=== PATIENT | male | born 1995 | race Two or more races ===

== ENCOUNTER 2023-07-23 10:09 | Outpatient (AMB) | payer OTHER, SELFPAY ==
--- NOTE | 2023-07-23 10:10 | A.OFFPC_ITS ---
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- NEEDS PHQ9 +THRIVE Email Operations Manager Required: No Accompanied by: Self / Same As Patient Allergies amoxicillin Adverse Reaction (Mild, Verified 07/23/23 10:23) Unknown Medication List - Last Reconciled 07/23/23 by JOSUÉ Cruz Tobacco use date assessed: 07/23/23 Dental Screening Dental Screen Date: 07/23/23 Did you have a dental visit in the last 12 months?: No Did you have a dental problem in the last 6 months where you did not have access to dental care?: No Was dental information given to patient?: No HPI HPI Comments History of Present Illness Details 27-year-old male new patient presents [facility]. Past medical history significant for Spondylothisthesis of lumbar back, patient reports was noted on MRI 2021. Patient states few months ago he re-injured his back, does not recall any particular trauma but states continues to have diffuse lumbar back pain, patient states pain is a dull aching pain. Denies any radiculopathy symptoms and bowel or bladder incontinence. Patient has done physical therapy in the past with improvement, requesting referral to PT. Patient currently taking any medications [id number] for back pain, states he usually treats pain with heat,TENS therapy and stretching. Pain is exacerbated by sitting, patient carries seat cushion with him just in case he needs to sit. Patient has an appointment with [facility] physical therapy to [facility], requesting referral for this patient given printed referral. Denies CP,palpitations,sob and syncope. [place]; unknown pcp eye exam: 2 weeks ago Declined Labs [facility] Medical History (Updated 07/23/23 @ 10:47 by JOSUÉ Cruz) Benign focal epilepsy of childhood Acute pharyngitis Otitis media, left Family History (Updated 07/23/23 @ 10:31 by JOSUÉ Cruz) Mother No problems noted. Father No problems noted. Sister No problems noted. Social History (Updated 07/23/23 @ 10:31 by JOSUÉ Cruz) Housing: Apartment Alcohol intake: never Patient Tobacco Use Status: Never used Tobacco e-Cigarette/Vaping Use: Never Used Substance Use Type: Marijuana Cognitive needs: No Hearing needs: No Vision needs: No Questionnaire PHQ-9 Over the last 2 weeks, how often have you been bothered by any of the following problems? 1. Little interest or pleasure in doing things: not at all 2. Feeling down, depressed, or hopeless: not at all 3. Trouble falling or staying asleep, or sleeping too much: not at all 4. Feeling tired or having little energy: not at all 5. Poor appetite or overeating: not at all 6. Feeling bad about yourself - or that you are a failure or have let yourself or your family down: not at all 7. Trouble concentrating on things, such as reading the newspaper or watching television: not at all 8. Moving or speaking so slowly that other people could have noticed. Or the opposite - being so fidgety or restless that you have been moving around a lot more than usual: not at all 9. Thoughts that you would be better off or of hurting yourself in some way: not at all Total score: 0 Depression Screening Interpretation: Negative Depression Screening Done: Yes 53073 - PHQ-9 Billing: Yes Source: Developed by Drs. Dale Gagnon, Danielle Alex, Matthias Murcia and colleagues, with an educational marlena from [employer]. Thrive Questionnaire Date Thrive assessed: 07/23/23 I am a: Patient What is your living situation today?: I have a steady place to live Within the past 12 months, did the food you bought not last and you didn't have the money to get more?: Never true Within the past 12 months, did you worry whether your food would run out before you got money to buy more?: Never true Do you have trouble paying for medicines?: No Do you have trouble getting transportation to medical appointments?: No Do you have trouble paying your heating and electricity bill?: No Do you have trouble taking care of your child, family member or friend?: No Do you have trouble with day-to-day activities such as bathing, preparing meals, shopping, managing finances, etc.?: No Are you currently unemployed and looking for a job?: No Are you interested in more education?: No Please select the resources that you would like help with: None Currently or been in a relationship where the following occur: no concerns reported AUDIT C Alcohol Use Questionnaire (AUDIT-C) 1. How often do you have a drink containing alcohol?: Never 3. How often do you have six or more drinks on one occasion?: Never Total Score: 0 SEBASTIAN-7 AMB Questionnaire SEBASTIAN-7 Date SEBASTIAN - 7 assessed: 07/23/23 Feeling nervous, anxious, or on edge: 0 = Not at all Not being able to stop or control worryin = Not at all Worrying too much about different things: 0 = Not at all Trouble relaxin = Not at all Being so restless that it is hard to sit still: 0 = Not at all Becoming easily annoyed or irritable: 0 = Not at all Feeling afraid as if something awful might happen: 0 = Not at all Total SEBASTIAN-7 score (0-4 normal; 5-9 mild; 10-14 moderate; 15-21 severe): 0 Source: Developed by Drs. Dale Gagnon, Danielle Alex, Matthias Murcia and colleagues, with an educational marlena from [employer]. SEBASTIAN-7 Assessment Billing SEBASTIAN-7 Assessment Tool: SEBASTIAN-7 Assessment 57774 Review of Systems Const Denies chills, Denies fatigue, Denies fever(s) and Denies poor appetite Eyes Denies no additional complaints ENT Reports Normal hearing present Card Denies chest pain, Denies syncope, Denies rapid heart rate and Denies dyspnea Resp Denies cough and Denies dyspnea GI Denies change in stool character, Denies constipation, Denies diarrhea, Denies nausea and Denies vomiting Denies dysuria, Denies urinary frequency and Denies urinary urgency Musc Reports back pain (lumbar back pain ) Neuro Reports Normal hearing present, Denies confusion and Denies syncope Psych Denies confusion Endo Denies fatigue Physical exam (Primary Care) Vital Signs: Last Vital Signs Pulse 113 H 07/23/23 10:11 BP 122/80 07/23/23 10:11 Pulse Ox 98 07/23/23 10:11 Oxygen Delivery Method Room Air 07/23/23 10:11 BMI result Body Mass Index 30.7 Tobacco/Smoking Status: Tobacco use Status Tobacco use date assessed 07/23/23 07/23/23 10:19 Patient Tobacco Use Status Never used Tobacco 07/23/23 10:31 e-Cigarette/Vaping Use Never Used 07/23/23 10:31 PHQ-9: PHQ-9 Score PHQ-9: Total score 0 07/23/23 10:33 Depression Screening Interpretation: Negative Thrive Assessment: Date of Thrive Assessment Date Thrive assessed 07/23/23 07/23/23 10:19 Currently or been in a relationship where the following occur: no concerns reported Const General: No confusion Orientation/consciousness: No confusion HENMT Head: Yes normocephalic and Yes atraumatic Ears: external ears normal and TM's normal bilaterally General nose exam: Normal external nose present and Normal nasal mucous membranes and turbinates present Face and sinus: Yes normal facial exam and Yes sinuses nontender Mouth: moist mucous membranes Throat: Yes tonsils normal Eyes Conjunctivae: conjunctivae normal Sclerae: sclerae normal Pupils: Equal, round and reactive pupils present and Pupils normal by confrontation EOM: EOMs intact bilaterally Direct Ophthalmoscopy: normal light reflex Neck Neck: Yes no lymphadenopathy and Yes supple Thyroid: Thyroid normal Chest Chest palpation & inspection: normal inspection of the chest Resp Effort & Inspection: normal respiratory effort Auscultation: clear to auscultation bilaterally, no crackles, no rhonchi and no wheezes Cardio Rate: regular rate Rhythm: regular rhythm Peripheral pulses: radial pulses present and dorsalis pedis present GI Inspection: Yes normal to inspection Palpation (GI): Soft to palpation, nontender and No hepatosplenomegaly present Auscultation: normoactive bowel sounds Back/Spine/Pelvis Cervical Spine: normal cervical lordosis Thoracic/Lumbar Spine: thoracic and lumbar spine normal to inspection, No thoracic spinal tenderness, lumbar spinal tenderness and No straight leg raise positive (unable to complete, patient unable to tolerate lying flat ) Pelvis: no pain with anterior-posterior compression Skin General skin exam: no rashes or lesions noted Neuro General: No confusion Cranial nerves: Yes Equal, round and reactive pupils present and Yes Normal hearing present Cognition (Neuro): normal cognition Gait exam (Neuro): Normal gait present Motor exam (neuro): 5/5 motor strength present throughout Deep tendon reflexes (DTR's): Right brachioradialis reflex intensity grade: 2+, Left brachioradialis reflex intensity grade: 2+, Right patellar reflex intensity grade: 2+ and Left patellar reflex intensity grade: 2+ Extrem General: No edema Assessment and Plan Assessment & Plan (1) Spondylolisthesis of lumbar region: Comment: L5 grade 2 MRI November 2021 Code(s): M43.16 - Spondylolisthesis, lumbar region Plan: Referral entered to PT. Can us OTC Tylenol or ibuprofen as needed for pain and continue to use heat, TENS therapy . Signs and symptoms reviewed with patient when to follow up or seek emergency medical attention. (2) Physical exam, annual: Code(s): Z00.00 - Encounter for general adult medical examination without abnormal findings Plan: Follow up in 1 year or sooner if needed (3) Psoriasis: Code(s): L40.9 - Psoriasis, unspecified Plan: Patient requesting refill on his triamcinolone cream, RX sent to patients pharmacy. Orders: Orders PT Evaluation and Treatment Today M43.16 - Spondylolisthesis, lumbar region Medications: New triamcinolone acetonide 0.1% 1 appl topical BID 30 grams 0RF L40.9 - Psoriasis, unspecified Coding Level of Care Code New Pt Prev Care 18-39yr([id number] Diagnoses Spondylolisthesis of lumbar region M43.16 Physical exam, annual Z00.00 Psoriasis L40.9 Additional Codes SEBASTIAN-7 Assessment Billing - SEBASTIAN-7 Assessment Tool: SEBASTIAN-7 Assessment [id number] ([id number])
[2023-07-23 10:11] VITALS: BP 122/80; PULSE 113; O2SAT 98; BMI 30.7
== END 2023-07-23 10:44 | disposition home or self-care (01) ==
PROVIDERS: PCP Internal Medicine; Visit Provider Nurse Practitioner Family
DX: M43.16 Spondylolisthesis, lumbar region (principal); Z00.00 Encounter for general adult medical examination without abnormal findings; L40.9 Psoriasis, unspecified
CPT/HCPCS: 99385

== ENCOUNTER → 2024-07-25 09:53 | Outpatient (BNVA) | payer OTHER, SELFPAY | PROVIDERS: PCP Internal Medicine; Visit Provider Internal Medicine ==

== ENCOUNTER 2025-05-15 09:22 | Outpatient (AMB) | payer OTHER, SELFPAY ==
[2025-05-15 09:24] VITALS: BP 120/78; PULSE 64; O2SAT 98; BMI 28.1
--- NOTE | 2025-05-15 09:24 | MHC.PC.OV ---
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 Accompanied by: Self / Same As Patient Allergies amoxicillin Adverse Reaction (Mild, Verified 05/15/25 09:48) Unknown Medication List - Last Reconciled 05/15/25 by Olu Rolon MD naproxen 500 mg PO BID PRN triamcinolone acetonide 0.1% 1 appl topical BID Tobacco use date assessed: 05/15/25 Dental Screening Dental Screen Date: 05/15/25 Did you have a dental visit in the last 12 months?: Yes Did you have a dental problem in the last 6 months where you did not have access to dental care?: No Was dental information given to patient?: Patient has dentist HPI Annual Exam Per Patient HPI Details Patient comes in today his annual physical examination States that he is still experiencing recurrent joint pains and occasional swelling, especially in his knees and wrists He has a history of osteoarthritis especially in his knees, with x-rays done in the past confirming his condition Also reports (+) low back pain lately States that he used to play football when he was younger and this was likely a partial reason for his current knee issues States that he takes OTC Naproxen as needed with partial relief of his knee pain and low back pain He also has a history of psoriasis and would like to get a refill on his Rx for Triamcinolone cream States that he feels okay otherwise He denies any headaches or dizziness Denies any chest pains, no increased shortness of breath No nausea/vomiting, no abdominal pain No change in bowel habits noted He denies any acute urinary symptoms [facility] Medical History (Updated 08/28/25 @ 03:36 by Olu Rolon MD) Overweight (BMI 25.0-29.9) Psoriasis Osteoarthritis of knees, bilateral Obesity, class 1 Benign focal epilepsy of childhood Surgical History History of tonsillectomy Family History Mother No problems noted. Father No problems noted. Sister No problems noted. Social History Housing: Apartment Alcohol intake: never Patient Tobacco Use Status: Never used Tobacco e-Cigarette/Vaping Use: Never Used Second Hand Smoke Exposure: No Substance Use Type: Marijuana service: No Current occupational status: employed Current occupation: Teacher Cognitive needs: No Hearing needs: No Vision needs: Yes (Glasses) Questionnaire PHQ-9 Over the last 2 weeks, how often have you been bothered by any of the following problems? 1. Little interest or pleasure in doing things: not at all 2. Feeling down, depressed, or hopeless: not at all 3. Trouble falling or staying asleep, or sleeping too much: not at all 4. Feeling tired or having little energy: more than half the days 5. Poor appetite or overeating: not at all 6. Feeling bad about yourself - or that you are a failure or have let yourself or your family down: not at all 7. Trouble concentrating on things, such as reading the newspaper or watching television: not at all 8. Moving or speaking so slowly that other people could have noticed. Or the opposite - being so fidgety or restless that you have been moving around a lot more than usual: more than half the days 9. Thoughts that you would be better off or of hurting yourself in some way: not at all Total score: 4 Depression Screening Interpretation: Positive Depression Screening Follow-up: Follow-up Visit Requested Depression Screening Done: Yes 99681 - PHQ-9 Billing: Yes Source: Developed by Drs. Dale Gagnon, Danielle Alex, Matthias Murcia and colleagues, with an educational marlena from [employer]. Thrive Questionnaire Date Thrive assessed: 05/15/25 I am a: Patient What is your living situation today?: I choose not to answer this question Within the past 12 months, did the food you bought not last and you didn't have the money to get more?: I choose not to answer this question Within the past 12 months, did you worry whether your food would run out before you got money to buy more?: I choose not to answer this question Do you have trouble paying for medicines?: I choose not to answer this question Do you have trouble getting transportation to medical appointments?: I choose not to answer this question Do you have trouble paying your heating and electricity bill?: I choose not to answer this question Do you have trouble taking care of your child, family member or friend?: I choose not to answer this question Do you have trouble with day-to-day activities such as bathing, preparing meals, shopping, managing finances, etc.?: Yes Are you currently unemployed and looking for a job?: I choose not to answer this question Are you interested in more education?: I choose not to answer this question Please select the resources that you would like help with: None Currently or been in a relationship where the following occur: I choose not to answer THRIVE Score: 0 AUDIT C Alcohol Use Questionnaire (AUDIT-C) 1. How often do you have a drink containing alcohol?: Never 3. How often do you have six or more drinks on one occasion?: Never Total Score: 0 Score Reviewed/Action Taken: Yes SEBASTIAN-7 AMB Questionnaire SEBASTIAN-7 Date SEBASTIAN - 7 assessed: 05/15/25 Feeling nervous, anxious, or on edge: 0 = Not at all Not being able to stop or control worryin = Not at all Worrying too much about different things: 0 = Not at all Trouble relaxin = More than half the days Being so restless that it is hard to sit still: 0 = Not at all Becoming easily annoyed or irritable: 0 = Not at all Feeling afraid as if something awful might happen: 0 = Not at all Total SEBASTIAN-7 score (0-4 normal; 5-9 mild; 10-14 moderate; 15-21 severe): 2 Source: Developed by Drs. Dale Gagnon, Danielle Alex, Matthias Murcia and colleagues, with an educational marlena from [employer]. Review of Systems Const Denies chills, Denies fatigue, Denies fever(s), Denies headache(s), Denies malaise and Denies weakness Eyes Denies blurry vision, Denies change in vision, Denies irritation and Denies itchy eyes ENT Denies dysphagia, Denies dizziness, Denies otalgia, Denies headache(s), Denies nasal congestion, Denies neck pain, Denies odynophagia and Denies sore throat Card Denies rapid heart rate, Denies irregular heart rhythm, Denies palpitations and Denies dyspnea Resp Denies chest congestion, Denies cough, Denies dyspnea and Denies wheezing GI Denies abdominal pain, Denies bloating, Denies constipation, Denies dysphagia, Denies heartburn, Denies diarrhea, Denies nausea, Denies odynophagia and Denies vomiting Denies hematuria, Denies difficulty urinating, Denies dysuria, Denies urinary frequency and Denies urinary urgency Musc Reports back pain (over the lower back), Reports arthralgias (especially involving his knees and wrists), Denies joint swelling, Denies muscle weakness and Denies neck pain Skin/Breast Denies change in pigmentation, Denies lesions, Reports rash (on and off - due to psoriasis) and Denies unusual bruising Neuro Denies dizziness, Denies headache(s), Denies paresthesias and Denies weakness Endo Denies fatigue and Denies palpitations Aller/Immun Denies itchy eyes and Denies wheezing Physical exam (Primary Care) Vital Signs: Last Vital Signs Pulse 64 05/15/25 09:24 BP 120/78 05/15/25 09:24 Pulse Ox 98 05/15/25 09:24 Oxygen Delivery Method Room Air 05/15/25 09:24 BMI result Body Mass Index 28.1 Tobacco/Smoking Status: Tobacco use Status Tobacco use date assessed 05/15/25 05/15/25 09:28 Patient Tobacco Use Status Never used Tobacco 05/15/25 09:28 e-Cigarette/Vaping Use Never Used 05/15/25 09:28 PHQ-9: PHQ-9 Score PHQ-9: Total score 4 05/15/25 10:03 Depression Screening Interpretation: Positive Depression Screening Follow-up: Follow-up Visit Requested Thrive Assessment: Date of Thrive Assessment Date Thrive assessed 05/15/25 05/15/25 09:28 Currently or been in a relationship where the following occur: I choose not to answer Const General: no acute distress, alert and awake Orientation/consciousness: patient oriented x3 HENMT Head: Yes normocephalic and Yes atraumatic Ears: external ears normal, TM's normal bilaterally and EAC's normal General nose exam: No nasal discharge present Face and sinus: Yes normal facial exam and Yes sinuses nontender Teeth and gingiva: dentition normal Throat: Yes posterior oropharynx normal and Yes tonsils normal (no TP congestion) Eyes Eyelids: Yes eyelids normal Conjunctivae: conjunctivae normal Pupils: Equal, round and reactive pupils present EOM: EOMs intact bilaterally Neck Neck: Yes supple and No lymphadenopathy Thyroid: Thyroid normal Resp Auscultation: clear to auscultation bilaterally, no rales and no wheezes Cardio Rate: regular rate Rhythm: regular rhythm Heart sounds: no murmurs GI Palpation (GI): Soft to palpation, nontender and No hepatosplenomegaly present Auscultation: normal bowel sounds General: Yes no CVA tenderness Back/Spine/Pelvis Back: no CVA tenderness Thoracic/Lumbar Spine: lumbar spinal tenderness Skin Lesions: no lesions Rashes: no rashes Neuro General: patient oriented x3, moves all extremities, no focal motor deficits and CN's II-XI intact bilaterally Cranial nerves: Yes Equal, round and reactive pupils present Cognition (Neuro): normal cognition Gait exam (Neuro): Normal gait present Extrem General: Yes no clubbing, cyanosis or edema Right lower extremity: knee Details: tenderness and crepitus; no swelling Left lower extremity: knee Details: tenderness and crepitus; no swelling Coding Level of Care Code Est Pt Prev Care 18-39y([id number]) Diagnoses Annual physical exam Z00.00 Primary osteoarthritis of both knees M17.0 Osteoarthritis type: primary Spondylolisthesis of lumbar region M43.16 Arthralgia of hands, bilateral M25.541; M25.542 Benign focal epilepsy of childhood G40.009 Psoriasis L40.9 Overweight (BMI 25.0-29.9) E66.3 Additional Codes PHQ-9 - 19649 - PHQ-9 Billing: Yes ([id number]) Assessment & Plan Assessment & Plan (1) Annual physical exam: Code(s): Z00.00 - Encounter for general adult medical examination without abnormal findings Category: Medical Plan: Check labs KERLINE to complete his annual exam today (2) Osteoarthritis of knees, bilateral: Code(s): M17.0 - Bilateral primary osteoarthritis of knee Category: Medical Qualifiers: Osteoarthritis type: primary Qualified Code(s): M17.0 - Bilateral primary osteoarthritis of knee Plan: Patient reportedly has had x-rays of the knees done in the past that confirmed the presence of degenerative changes/osteoarthritis in both knees Will refer patient for physical therapy for further management Continue OTC Naproxen BID PRN for pain (3) Spondylolisthesis of lumbar region: Comment: L5 grade 2 MRI November 2021 Code(s): M43.16 - Spondylolisthesis, lumbar region Category: Medical Plan: Reinforced activity and weight-lifting restrictions to minimize aggravating his low back pain MRI of the lumbar spine done back in 2021 revealed (+) changes of spondylolisthesis in the lumbar vertebrae Continue OTC Naproxen BID PRN for pain (4) Arthralgia of hands, bilateral: Code(s): M25.541 - Pain in joints of right hand; M25.542 - Pain in joints of left hand Category: Medical Plan: Will include some labs for arthralgia work up with his routine labs today Will refer him for PT as well (5) Benign focal epilepsy of childhood: Comment: age 8-10 years old was on Depakote, negative workup. No longer on medication. No seizure activity since 12 Code(s): G40.009 - Localization-related (focal) (partial) idiopathic epilepsy and epileptic syndromes with seizures of localized onset, not intractable, without status epilepticus Category: Medical Plan: Patient states that he's not had any seizures for years now Follow up with neurology as scheduled (6) Psoriasis: Code(s): L40.9 - Psoriasis, unspecified Category: Medical Plan: Continue Triamcinolone acetonide 0.1% cream BID PRN (7) Overweight (BMI 25.0-29.9): Code(s): E66.3 - Overweight Category: Medical Plan: Reinforced diet/exercise as tolerated/lose weight Plan Follow up in 6 months Orders: Orders PT Evaluation and Treatment 05/15/25 M54.50 - Low back pain, unspecified, M25.561 - Pain in right knee, M25.562 - Pain in left knee Complete Blood Count Auto Diff 05/15/25 D64.9 - Anemia, unspecified Lipid Panel 05/15/25 E78.00 - Pure hypercholesterolemia, unspecified Comprehensive [place]. Panel Fast 05/15/25 E78.00 - Pure hypercholesterolemia, unspecified Lyme IgG/IgM w/reflex to WB 05/15/25 M25.541 - Pain in joints of right hand, M25.542 - Pain in joints of left hand Medications: Refilled triamcinolone acetonide 0.1% 1 appl topical BID 30 grams 0RF L40.9 - Psoriasis, unspecified
== END 2025-05-15 10:04 | disposition home or self-care (01) ==
LOC: HO.HMCH 09:23
PROVIDERS: PCP Internal Medicine; Visit Provider Internal Medicine
DX: Z00.00 Encounter for general adult medical examination without abnormal findings (principal); M17.0 Bilateral primary osteoarthritis of knee; M43.16 Spondylolisthesis, lumbar region; M25.541 Pain in joints of right hand; M25.542 Pain in joints of left hand; G40.009 Localization-related (focal) (partial) idiopathic epilepsy and epileptic syndromes with seizures of localized onset, not intractable, without status epilepticus; L40.9 Psoriasis, unspecified; E66.3 Overweight